=== PATIENT | female | born 1955 | race Caucasian/White ===

== ENCOUNTER → 2018-07-02 | Outpatient (CLI) | payer OTHER ==
[~2018-07-02] MED LIST: BIOSIL PO; LEV125 PO; LEVO137T23 PO; LEVO75TA73 PO; LIO5 PO; MULT1TAB64 PO
--- NOTE | 2018-07-03 14:09 | RADIOLOGY IMAGING REPORT ---
FACILITY: [facility] [place] PATIENT NAME: PAUL OROURKE : [id number] MR: [id number] V: [id number] EXAM DATE: ORDERING PHYSICIAN: TARA IVAN TECHNOLOGIST: Leny Alexander PROCEDURE:BILATERAL DIGITAL SCREENING MAMMOGRAM WITH CAD ASSISTED INTERPRETATION & 3D TOMOSYNTHESIS COMPARISON:Prior mammograms dated 06/02/17, 05/11/16, 02/19/15, 02/11/14, 02/05/13, 01/10/12 INDICATIONS:SCREENING FINDINGS: Scattered fibroglandular densities are seen throughout the breasts. The parenchymal pattern has remained stable allowing for difference in mammographic technique & patient positioning. There is no evidence of malignant appearing mass, malignant appearing calcification or other secondary sign of malignancy in either breast. DIAGNOSTIC CATEGORY 1--NEGATIVE. RECOMMENDATIONS: ROUTINE MAMMOGRAM AND CLINICAL EVALUATION. IMPRESSION: BIRADS 1: Negative. No significant abnormality is seen. Dictated by: Delores Butler M.D. on 07/02/2018 at 17:03 Transcribed by: FREDA on 07/03/2018 at 12:39 Approved by: Delores Butler M.D. on 07/03/2018 at 14:09 [facility]
== END ==
LOC: MAMO 03:29
PROVIDERS: ATTEND Obstetrics & Gynecology
DX: Z12.31 Encounter for screening mammogram for malignant neoplasm of breast (principal)
CPT/HCPCS: 77063; 77067

== ENCOUNTER → 2018-09-05 | Outpatient (CLI) | payer OTHER ==
--- NOTE | 2018-09-05 17:12 | RADIOLOGY IMAGING REPORT ---
FACILITY: [facility] - [place] PATIENT NAME: Thea Estes : 1955 MR: [id number] V: [id number] EXAM DATE: ORDERING PHYSICIAN: TARA IVAN TECHNOLOGIST: Location: [facility] Patient: Thea Estes : 1955 Visit/Account:[id number] Date of Sevice: 09/05/2018 Clinical history: Postmenopausal. History of osteopenia.. Comparison: 05/11/2016. LUMBAR SPINE: The bone mineral density (BMD) measured from L1-L4 correlates with a Z-score of -0.5 and a T-score of -1.9 which is osteopenia as defined by the World Health Organization. The corresponding risk of fra cture in the lumbar spine is increased 3-4 times compared with a young adult reference population. T his value has decreased by 4.2 % since the prior study. More than 5% change is considered significan t. HIP: Bone mineral density (BMD) measured in the left Total Hip region correlates with a Z-score of -0.6 an d a T-score of -1.6 which is osteopenia as defined by the World Health Organization. The correspondi ng risk of fracture in the hip is increased 3-4 times compared with a young adult reference populatio n. This value has decreased by 5.2 % since the prior study. More than 5% change is considered signi ficant. Bone mineral density (BMD) measured in the left femoral neck correlates with a Z-score of -0.7 and a T-score of -2.5 which is osteopenia as defined by the World Health Organization. The corresponding r isk of fracture in the hip is increased 4 times compared with a young adult reference population. Th is value has decreased by 6.0 % since the prior study. More than 5% change is considered significant . Bone mineral density (BMD) measured in the left Femoral Neck region measures 0.755 g/cm2. IMPRESSION: 1. Lumbar spine: Osteopenia. There has been no significant change in the bone mineral density sinc e the previous exam. 2. Left total hip: Osteopenia. There has been significant decrease in the bone mineral density since the previous exam. 3. Left Femoral Neck: Osteopenia. There has been significant decrease in the bone mineral density si nce the previous exam 4. Left femoral neck bone mineral density: 0.755 g/cm2. The next DEXA scan of this patient should include the following sites: Lumbar spine and left hip. FRAX(R) WHO Fracture Risk Assessment Tool link: http://www.shef.ac.uk/FRAX/tool.jsp?locationValue=9 PLEASE NOTE: 1) The World Health Organization defines low BMD as follows: T-score Normal > -1 Osteopenia < -1 and > -2.5 Osteoporosis < -2.5 without fractures Established osteoporosis < -2.5 with fractures 2) In general, you may wish to consider: Diagnosis Treatment Follow-up DEXA Normal BMD Prevention 2-3 years Osteopenia Prevention/therapy 1-2 years Osteoporosis Therapy Yearly 3) Fracture risk estimated from the T-score is more accurate for vertebral fractures (often spontane ous) than for hip fractures Report Dictated By: Malaika Armstrong MD at 09/05/2018 5:03 PM Report E-Signed By: Malaika Armstrong MD at 09/05/2018 5:07 PM WSN:[id number]
== END ==
LOC: RAD 00:39
PROVIDERS: ATTEND Obstetrics & Gynecology
DX: M85.89 Other specified disorders of bone density and structure, multiple sites (principal)
CPT/HCPCS: 77080